=== PATIENT | female | born 1980 | race Caucasian/White ===

== ENCOUNTER 2017-10-09 01:29 | Emergency (ER) | payer OTHER ==
--- NOTE | 2017-10-09 01:39 | EDPHY ---
H & P HPI/ROS: HPI CHIEF COMPLAINT: Headache, head trauma HISTORY OF PRESENT ILLNESS: Patient very pleasant 36-year-old female significant past medical history for bipolar disorder and a history of atrial flutter she takes a daily baby aspirin. Close to 3.5 hr ago she struck her head on the door cabinet the center of the vertex of her head. Since then she has had ongoing headache. She called her healthcare company was advised to the emergency room for evaluation. She had no LOC. She was not vomiting. She denies any head laceration. She does report some confusion. This has improved. Main complaint 6/10 headache vertex of her head. Past Medical History: Bipolar disorder, atrial flutter Past Surgical History: Denies recent surgery Social History: Denies daily use drugs alcohol tobacco products. Family History: Noncontributory ROS REVIEW OF SYSTEMS: A comprehensive 10 point review of systems is otherwise negative aside from elements mentioned in the history of present illness. Exam Constitutional appears well nontoxic triage nursing summary reviewed, vital signs reviewed, awake/alert. Eyes normal conjunctivae and sclera, EOMI, PERRLA. HENT head/neck: No midline spine pain. No significant head trauma on exam. No visible scalp hematoma or laceration., moist mucus membranes, no epistaxis, neck supple/ no meningismus, no raccoon eyes. Respiratory clear to auscultation bilaterally, normal breath sounds, no respiratory distress, no wheezing. Cardiovascular rate normal, regular rhythm, no murmur, no edema, distal pulses normal. Gastrointestinal soft, non-tender, no rebound, no guarding, normal bowel sounds, no distension, no pulsatile mass. Genitourinary no CVA tenderness. Musculoskeletal no midline vertebral tenderness, full range of motion, no calf swelling, no tenderness of extremities, no meningismus, good pulses, neurovascularly intact. Skin pink, warm, & dry, no rash, skin atraumatic. Neurologic awake, alert and oriented x 3, AAOx3, moves all 4 extremities equally, motor intact, sensory intact, CN II-XII intact, normal cerebellar, normal vision, normal speech. Psychiatric normal mood/affect. Heme/Lymph/Immune no lymphadenopathy. Differential Diagnosis: Includes but is not limited to in a particular order intracranial bleed, skull fracture, contusion, parenchymal contusion, traumatic subarachnoid, epidural, subdural, concussion Medical Decision Making: Plan for this patient CT head without contrast rule out significant intracranial trauma. Re-evaluation: CT scan head without contrast is negative for acute traumatic injury specifically no bleed or fracture. 0230: Patient resting comfortably normal neurological exam not vomiting no severe headache. Feels much better. Return precautions discussed with her. Her CT scan did not show any significant trauma. Is of course possible she has closed-head injury/concussion. Source: Patient Allergies/Adverse Reactions: No Known Allergies Allergy (Unverified 10/09/17 01:45) Home Medications: Medication Instructions Recorded Aspirin 81mg (*) 10/09/17 LaMICtal 10/09/17 Naltrexone HCl 10/09/17 Wellbutrin 150mg XL 10/09/17 Departure - Departure Disposition: Home, Routine, Self-Care Clinical Impression: Head injury Qualifiers: Encounter type: initial encounter Qualified Code(s): S09.90XA - Unspecified injury of head, initial encounter Concussion Qualifiers: Encounter type: initial encounter Loss of consciousness presence/duration: without LOC Qualified Code(s): S06.0X0A - Concussion without loss of consciousness, initial encounter Condition: Good Instructions: Concussion (ED), Head Injury (ED) Additional Instructions: 1. Return emergency room if develops any worsening symptoms questions or concerns. Referrals: DR MIKA [Other] - As per Instructions
[2017-10-09 01:46] VITALS: TEMP 98.2; O2SAT 96
[2017-10-09 02:52] VITALS: BP 108/77; PULSE 78; RESP 16
== END 2017-10-09 02:49 | disposition home or self-care (01) ==
DX: S06.0X0A Concussion without loss of consciousness, initial encounter (principal); Z79.82 Long term (current) use of aspirin; W22.8XXA Striking against or struck by other objects, initial encounter